=== PATIENT | female | born 1985 ===

== ENCOUNTER → 2017-05-27 | Outpatient (CLI) | payer BC, SELFPAY ==
[~2017-05-27] MED LIST: BCP; BUSP5; CHOL10002 PO; HYDACE5 PO; IBUP800; IBUP800 PO; NAPR375 PO; NEUMANS OINTMENT; OXYACE5T; OXYACE5T PO; PHENA200 PO; PRENATAL FORMU1 EAC1 PO; PROACE100 PO; PROM25 PO; RXOXYACE PO; RXPROACE PO; SULTRIDS PO; Vanadom350 MG PO
== END | disposition home or self-care (01) ==
LOC: LAB EV 14:06
DX: R07.0 Pain in throat (principal)
CPT/HCPCS: 87070

== ENCOUNTER → 2017-09-21 | Outpatient (CLI) | payer BC, SELFPAY ==
[~2017-09-21] MED LIST changes: -Vanadom350 MG PO
[2017-09-27 07:27] LABS: DIAGNOSIS: CommentC
== END | disposition home or self-care (01) ==
LOC: LAB 17:55 → LAB SHORT 17:55
PROVIDERS: Obstetrics & Gynecology
DX: Z12.4 Encounter for screening for malignant neoplasm of cervix (principal)
CPT/HCPCS: 87624; G0123

== ENCOUNTER 2018-05-03 15:30 | Emergency (ER) | payer BC ==
[~2018-05-03] VITALS: Ht 162.6 cm; Wt 59.9 kg
[~2018-05-03 15:30] MED LIST changes: +Vanadom350 MG PO
[2018-05-03 16:16] LABS: BASOPHILS ABSOLUTE AUTO 0.04 K/mm3 (0.00-0.23); BASOPHILS PERCENT AUTO 1 % (0-2); EOSINOPHILS PERCENT AUTO 2 % (0-6); Hematocrit 39.7 % (33.0-51.0); Hemoglobin 13.3 g/dL (11.5-16.0); IMMATURE GRAN ABSOLUTE AUTO 0.02 K/mm3 (0.00-0.10); IMMATURE GRAN PERCENT AUTO 0 % (0-1); LYMPHOCYTES ABSOLUTE AUTO 2.52 K/mm3 (0.84-5.20); LYMPHOCYTES PERCENT AUTO 38 % (21-46); MONOCYTES ABSOLUTE AUTO 0.53 K/mm3 (0.16-1.47); MONOCYTES PERCENT AUTO 8 % (4-13); Mean Corpuscular HGB 29.8 pg (26.0-34.0); Mean Corpuscular HGB Conc 33.5 g/dL (31.5-36.5); Mean Corpuscular Volume 89 fL (80-100); Mean Platelet Volume 9.6 fL (9.1-12.4); NEUTROPHILS ABSOLUTE AUTO 3.48 K/mm3 (1.96-9.15); NEUTROPHILS PERCENT AUTO 52 % (41-73); Platelet Count 275 K/mm3 (150-400); RDW Coefficient Variation 12.6 % (11.7-14.2); RDW Standard Deviation 41.1 fL (35.1-46.3); Red Blood Cell Count 4.46 M/mm3 (3.80-5.20); White Blood Cell Count 6.69 K/mm3 (4.00-11.30)
[2018-05-03 16:47] LABS: Anion Gap 5 mmol/L (6-16); Blood Urea Nitrogen 10 mg/dL (8-24); Bun/Creatinine Ratio 16.3 (12.0-20.0); CO2, Blood 27 mmol/L (21-32); Calcium, Blood 8.7 mg/dL (8.5-10.1); Chloride, Blood 109 mmol/L (98-108); Creatinine, Blood 0.61 mg/dL (0.40-1.00); Glomerular Filtration Rate >60 (60-); Glucose, Blood 93 mg/dL (70-99); Potassium, Blood 3.4 mmol/L (3.5-5.5); Sodium, Blood 141 mmol/L (136-145)
[2018-05-03] MEDS ORDERED: CARISOPRODOL250 MG PO (17:30)
[2018-05-03] MEDS ORDERED: HYDHCL25 PO (18:58)
== END 2018-05-03 19:01 | disposition home or self-care (01) ==
LOC: ER 15:30
PROVIDERS: Physician Assistant
DX: R06.00 Dyspnea, unspecified (principal); R51 Headache; F41.9 Anxiety disorder, unspecified; Z88.5 Allergy status to narcotic agent
CPT/HCPCS: 36415; 71046; 80048; 85025; 93005; 93010; 96374; 96375; 99284-25; J1885; J2930

== ENCOUNTER → 2018-12-21 | Outpatient (CLI) | payer BC ==
[~2018-12-21] MED LIST changes: +CARISOPRODOL250 MG PO; +HYDHCL25 PO
== END | disposition home or self-care (01) ==
LOC: LAB 14:10 → LAB SHORT 14:10
DX: R30.0 Dysuria (principal)
CPT/HCPCS: 87086

== ENCOUNTER → 2020-11-26 | Outpatient (CLI) | payer BC ==
[2020-11-28 18:06] LABS: HPV 16 Negative (Negative); HPV 18 Negative (Negative); HPV OTHER HR TYPES Negative (Negative)
== END ==
LOC: LAB SHORT 12:00 → LAB 12:00
PROVIDERS: Obstetrics & Gynecology
DX: Z12.4 Encounter for screening for malignant neoplasm of cervix (principal)
CPT/HCPCS: 87624; G0123